=== PATIENT | female | born 1955 | race Caucasian/White ===

== ENCOUNTER 2023-05-19 09:26 | Inpatient (IN) | payer MEDICARE, SELFPAY ==
[2023-05-19] VITALS (11 sets, daily range): BP systolic 133–155; BP diastolic 75–93; PULSE 78–85; RESP 17–24; TEMP 36.2–37.5; O2SAT 89–100
--- NOTE | ~2023-05-19 | CT_ITS ---
EXAMINATION: CTA chest PE protocol DATE: 05/19/2023 11:43 INDICATION: Shortness of breath. Elevated d-dimer. TECHNIQUE: Computed tomography angiography (CTA) of the chest was performed with 100 mL Omnipaque-350 intravenous contrast timed to evaluate the pulmonary arteries. Coronal maximum intensity projection 3D-reconstructions were created by the technologist. Automated exposure control and iterative reconst ruction technique were employed. Exam dose: 136.18 mGy-cm total exam DLP. COMPARISON: 05/19/2023 2 view chest FINDINGS: There is diagnostic contrast enhancement of the pulmonary arteries and no evidence of main, lobar or segmental pulmonary embolism. The peripheral pulmonary arteries are not optimally visualize d due to motion. No thoracic aortic aneurysm or dissection. Normal heart size. No pericardial effusion. Small right pleural effusion. Right apical pulmonary scarring. Patchy bilateral pulmonary infiltrates, involving right upper and middle lobes, lingula and left lowe r lobe and to a greater extent right lower lobe consistent with bilateral pneumonia. Moderately prominent emphysematous changes. Mild hilar and mediastinal lymph node prominence is likely reactive. No suspicious osteolytic or osteoblastic lesions. IMPRESSION: No evidence of pulmonary embolism Scattered patchy bilateral pulmonary infiltrates, likely due to pneumonia COPD Reviewed, dictated and finalized at [facility] Reviewed, dictated and finalized at [facility]. DICHLOROBENZENE MACHINE OPERATOR
--- NOTE | ~2023-05-19 | XR_ITS ---
XR chest 2V DATE: 05/19/2023 10:10 INDICATION: Shortness of breath, congestion TECHNIQUE: AP and lateral views COMPARISON: None FINDINGS: There are bilateral patchy infiltrates in the mid and particularly lower lung zones, right greater than left, suggesting bilateral pneumonia. Aspiration and pulmonary edema are not excluded. Moderate bilateral hyperinflation with relatively sparse markings in the upper lung zones, suggesting bullous emphysema. Cardiomegaly. No hilar or mediastinal enlargement is evident. Minimal if any pleural effusion. No pneumothorax. Osteopenia. IMPRESSION: Bilateral pulmonary infiltrates, particularly in the lower lung zones, right greater than left; diffusion diagnosis includes pneumonia, aspiration and pulmonary edema Bullous emphysema Reviewed, dictated and finalized at [facility]. INSTALLATION AND SERVICER IMPRESSION: Bilateral pulmonary infiltrates, particularly in the lower lung zon es, right greater than left; diffusion diagnosis includes pneumonia, aspiration and pulmonary edema Bullous emphysema
--- NOTE | ~2023-05-19 | US_ITS ---
US abdomen limited DATE: 05/20/2023 08:24 INDICATION: Right upper quadrant abdominal pain. Elevated liver function tests. TECHNIQUE: Real-time imaging of liver, pancreas, gallbladder COMPARISON: None FINDINGS: Incidentally noted is right pleural effusion. There is a mobile shadowing approximately 3.3 x 6.6 mm filling defect of the gallbladder consistent w ith gallstone. No gallbladder wall thickening or pericholecystic fluid collection. Negative sonograph ic Bryson's sign. No hepatic or pancreatic space-occupying mass lesion. Normal hepatopedal portal venous flow direction . The common bile duct measures 2 mm, normal. IMPRESSION: Cholelithiasis Right pleural effusion Reviewed, dictated and finalized at [facility] Reviewed, dictated and finalized at [facility]. HING FOREMAN
--- NOTE | 2023-05-19 09:46 | ECG_ITS ---
Measurements Intervals [place] Rate: 76 P: 81 [place]: 144 QRS: 35 QRSD: 94 T: 59 QT: 376 QTc: 425 Interpretive Statements SINUS RHYTHM DELAYED PRECORDIAL R/S TRANSITION BASELINE ARTIFACT- I, II, III, AVR, AVL, AVF, V1-V6 BORDERLINE ECG NO PREVIOUS ECG AVAILABLE FOR COMPARISON Electronically Signed On 05-19-2023 16:04:54 CHARGE ACCOUNT CLERK by Shawn Brady D.O.
[2023-05-19 10:08] LABS: Basophils Absolute Auto 0.1 K/mm3 (0.0-0.1); Basophils Percent Auto 0.6 % (0.2-1.2); Hemoglobin 14.2 g/dL (12.0-15.0); Immature Granulocyte Absolute 0.54 K/mm3 (0.00-0.031); Immature Granulocyte Percent A 2.5 % (0-0.5); Lymphocytes Absolute Auto 1.22 K/mm3 (0.9-3.2); Lymphocytes Percent Auto 5.7 % (18.3-44.2); Mean Corpuscular Hemoglobin 30.3 pg (26-34); Mean Corpuscular Volume 91.9 fl (80-100); Mean Platelet Volume 10.5 fl (7.4-10.4); Monocytes Absolute Auto 1.5 K/mm3 (0.1-0.6); Neutrophils Percent Auto 84.2 % (45.5-73.1); Platelet Count Result 417 k/mm3 (150-375); Red Blood Count 4.68 M/mm3 (4.2-5.4); Red Cell Distribution Width 14.6 % (11.5-14.5); White Blood Count 21.4 K/mm3 (4.5-10.0)
[2023-05-19 10:19] LABS: Alanine Aminotransferase 65 U/L (6-35); Albumin Level 3.3 g/dL (3.5-5.1); Alkaline Phosphatase 116 U/L (38-126); Anion Gap 8 mmol/L (8-16); Aspartate Amino Transferase 43 U/L (14-36); Bilirubin,Total 0.8 mg/dL (0.2-1.3); Blood Urea Nitrogen 13 mg/dL (7-17); Calcium 8.7 mg/dL (8.4-10.2); Carbon Dioxide 26 mmol/L (22-30); Chloride 103 mmol/L (98-107); Estimated CRCL calculation 55 ml/min; Estimated Glomerular Filt Rate > 60; Glucose 154 mg/dL (65-110); Potassium 3.3 mmol/L (3.4-5.0); Sodium 137 mmol/L (137-145)
[2023-05-19 10:25] LABS: INR 1.1; Partial Thromboplastin Time 25.3 SECONDS (22.3-36.8); Prothrombin Time 14.7 Seconds (11.1-14.7)
[2023-05-19 10:26] LABS: D Dimer 1.76 ug/mL (<0.48)
[2023-05-19 10:30] LABS: NT Pro B Type Natriuretic Pept 516 pg/mL (19.9-100); Platelet Estimate Increased (Adequate); Schistocytes None Seen (NORMAL); Troponin I < 0.012 ng/mL (0.000-0.034)
--- NOTE | 2023-05-19 10:32 | ED.URI ---
HPI - URI/Sore Throat General Chief Complaint: Upper Respiratory Infection Stated Complaint: congestion for several weeks Time Seen by Provider: 05/19/23 09:45 Source: patient Mode of arrival: ambulatory Limitations: no limitations History of Present Illness HPI Narrative: This is a 67-year-old female that presents to the emergency department for shortness of breath and cough. Ongoing over the last 2 weeks. Associated with sore throat and congestion. Reports she was seen at urgent care earlier in the week and given a steroid taper. She did not have any improvement with this. Reports chest pain with coughing. Denies fevers. Related Data Allergies Allergy/AdvReac Type Severity Reaction Status Date / Time amoxicillin AdvReac Diarrhea Verified 05/19/23 09:45 Review of Systems Review of Systems: CONSTITUTIONAL: Denies fever ENT: Reports rhinorrhea, congestion, sore throat CARDIOVASCULAR: Reports chest pain. Denies edema. RESPIRATORY: Reports cough and dyspnea. All systems reviewed & are unremarkable except as noted in HPI and below PMFSH Past Medical History Medical History (Updated 05/19/23 @ 13:04 by Dulce Maria Craft PA-C) No active medical problems Social History Social History (Updated 05/19/23 @ 10:35 by Dulce Maria Craft PA-C) Smoking status: Current every day smoker Exam Narrative: GENERAL: Well-appearing, thin, and in no acute distress. HEAD: Normocephalic, atraumatic. EYES: EOMI. ENT: Nares clear, no rhinorrhea or epistaxis. Mucous membranes dry. Oropharynx with erythema, without tonsillar hypertrophy, exudate or other lesions. Bilateral TMs pearly connelly non-bulging NECK: Supple. No adenopathy or masses. CHEST: No respiratory distress. Rales in the right lung. No wheezes or rhonchi HEART: Regular rate and rhythm. No murmur heard. Normal peripheral pulses. EXTREMITIES: Normal range of motion. No edema. SKIN: Warm, dry, no rash. NEURO: No focal deficits. Alert and oriented x3. PSYCH: Normal mood and affect Course Course Emergency Course: Patient updated on her workup and need for admission Consultations Consultation #1: Spoke with hospitalist about patient and workup who accepts admission Date: 05/19/23 Vital Signs Vital signs: Vital Signs Temperature 98.1 F 05/19/23 09:34 Pulse Rate 80 05/19/23 09:34 Respiratory Rate 18 05/19/23 09:34 Blood Pressure 133/75 05/19/23 09:34 Pulse Oximetry 97 05/19/23 09:34 Oxygen Delivery Room Air 05/19/23 09:34 Temperature 98.7 F 05/19/23 09:45 Pulse Rate 79 05/19/23 12:36 Respiratory Rate 17 05/19/23 12:36 Blood Pressure 149/92 H 05/19/23 12:36 Pulse Oximetry 98 05/19/23 12:36 Oxygen Delivery Nasal Cannula 05/19/23 10:32 Oxygen Flow Rate 2 05/19/23 10:32 MDM - URI/Sore Throat MDM Narrative Medical decision making narrative: Patient presents to the emergency department for worsening dyspnea associated with cold symptoms. She is afebrile and nontoxic appearing. Oxygen saturation did drop to the low 90s/upper 80s on room air. Placed on 2 L nasal cannula with improvement. CBC with leukocytosis to 21.4. Metabolic panel with mild hypokalemia. Patient given a dose of potassium. Her magnesium is mildly high. Liver enzymes are also mildly elevated. Patient influenza A positive. Chest x-ray shows bilateral pulmonary infiltrates. D-dimer elevated, CTA of the chest was obtained. No evidence for PE. Does show findings of pneumonia again. EKG without acute ST changes and baseline troponin is negative. Initial lactic acid elevated at 2.1. Patient hydrated with IV fluids. Blood cultures drawn. Patient started on IV antibiotics. Given a dose of Tamiflu. Patient updated on her workup and need for admission. Spoke with hospitalist about patient and workup who accepts admission Differential Diagnosis Differential diagnosis: Likely upper respiratory infection, viral infection, influenza and other (pneumonia
[2023-05-19 10:37] LABS: Magnesium 2.4 mg/dL (1.6-2.3)
[2023-05-19 10:44] LABS: Influenza A QL RT-PCR Positive (Negative); Influenza B QL RT-PCR Negative (Negative); RSV RNA, RT-PCR Negative (Negative); SARS-CoV-2 RNA PCR Negative (Negative)
[2023-05-19] MEDS: IPRATROPIUM BR 0.02% INH SOLN 0.5 MG/2.5 ML VIAL INHALATION (10:50)
[2023-05-19] MEDS: ALBUTEROL SULFATE NEB 2.5 MG/3 ML INH INHALATION (10:50)
[2023-05-19] MEDS: POTASSIUM CHLORIDE 20 MEQ ER TABLET 40 MEQ PO (10:55)
[2023-05-19] MEDS: OSELTAMIVIR PHOSPHATE 75 MG CAPSULE PO (11:00)
[2023-05-19 11:15] LABS: Lactic Acid Reflex 2.1 mmol/L (0.7-2.0)
[2023-05-19] MEDS: AZITHROMYCIN 500 MG/NS 250 ML 500 MG/250 ML BAG 250 MG IVPB (11:31)
[2023-05-19] MEDS: SODIUM CHLORIDE 0.9% IV 500 ML 999 ML IV CONT ×2 (12:36→13:07)
[2023-05-19 13:06] LABS: Lipase 89 U/L (23-300)
[2023-05-19 14:02] LABS: Reflex Lactic Acid Yes or No Add Lactic
--- NOTE | 2023-05-19 14:11 | ADMGEN ---
This patient, Oneyda Guerrero, was admitted to Medical Room 261-01. Patient/family oriented to hospital policies and general routines including ID bracelet, bed and alarms, visiting hours, pain management, procedures, bathroom and other care routines, personal items, smoking policy, room service/diet, and visiting hours. Information on how to activate the Rapid Response Team has been discussed. Patient/Family are encouraged to report perceived risks to care and to ask questions if they do not understand what they are told or what they should do.
[2023-05-19 14:16] LABS: Appearance Urine Clear (Clear); Bacteria Urine None Seen /hpf; Bilirubin Urine Negative (Negative); Blood Urine Negative (Negative); Color Urine Yellow (Yellow); Glucose Urine UA Trace mg/dL (Negative); Ketones Urine Trace mg/dL (Negative); Leukocyte Esterase Ur Negative LEU/UL (Negative); Nitrate Urine Negative (Negative); Non Pathogenic Casts 0-2; Protein Urine Trace mg/dL (Negative); RBC Urine 0-2 /hpf (0-2); Squamous Epithelial Cell Urine None seen /hpf (Few); Urobilinogen Urine 0.2 mg/dL (<2.0); WBC Urine 0-5 /hpf
[2023-05-19 14:23] LABS: Add Urine Microscopic? YES; Specific Grav Ur 1.062 (1.001-1.035)
--- NOTE | 2023-05-19 21:50 | PM.IMHP ---
H&P: HPI History of Present Illness Date/Time: 05/19/23 21:50 Chief Complaint: SOB Narrative: 67-year-old female presents here with shortness of breath with past medical history of tobacco use. Patient reports that she has been having shortness of breath, dry cough, sore throat, and congestion since late April, approximately 2 weeks ago. Seen at urgent care earlier this week and given steroid taper. However patient has not improved and continues to have shortness of breath with some associated right rib pain/RUQ pain with coughing. Denies any current nausea, vomiting, diarrhea. No history of COPD. Denies any baseline shortness of breath or limitations to daily activities related to shortness of breath. Reports decreased appetite in the last week. Does drink 1-2 glasses of wine with ice in each glass each evening. ED workup revealed an elevated white count at 21.4, elevated D-dimer, hypokalemia, lactic acid of 2.1, magnesium of 2.4, mildly elevated LFTs, normal BNP for age, mildly low albumin level. Urine not consistent with a UTI. Patient was Flu A+. Family at bedside reported their family members had been sick around [place] with fluids well. CXR showed bilateral pulmonary infiltrates in the lower lung barrera with right greater than left and bullous emphysema. CTA done and showed no evidence of PE, scattered pulmonary infiltrates likely due to pneumonia, and COPD. Review of Systems Review of Systems: All systems reviewed & are unremarkable except as noted in HPI and below PMFSH Past Medical History Medical History Tobacco use Surgical History Surgical History No history of previous surgery Social History Social History Smoking status: Current every day smoker Tobacco type: cigarettes Alcohol intake: former Drinks per week: 7 Substance use: never Do You Feel Safe in your Home?: Yes Lack of Transportation: No Lack of Food: Never True Current Housing: I Have Housing Concerned About Future Housing: No Difficulty Paying Gas/Electric Bills: No Difficulty Paying for Meds: No Currently Unemployed: No Education: High School Diploma/GED Difficulty w/ Childcare or Family Care: No Spiritual care concerns: No Meds Home Medications and Allergies Home Medications Medication Instructions Recorded Confirmed Type No Home Medications 05/19/23 05/19/23 History Allergies Allergy/AdvReac Type Severity Reaction Status Date / Time amoxicillin AdvReac Diarrhea Verified 05/19/23 09:45 Vital Signs Vital Signs - 24 hr 05/19/23 09:34 05/19/23 09:43 05/19/23 09:45 Temperature 98.1 F 98.7 F Pulse Rate 80 85 Respiratory Rate 18 22 H Blood Pressure 133/75 155/83 H Pulse Oximetry 97 97 99 Oxygen Delivery Room Air Room Air Oxygen Flow Rate 05/19/23 10:32 05/19/23 10:32 05/19/23 10:50 Temperature Pulse Rate 78 Respiratory Rate 18 Blood Pressure Pulse Oximetry 89 L 100 Oxygen Delivery Room Air Nasal Cannula Oxygen Flow Rate 2 05/19/23 11:02 05/19/23 12:36 05/19/23 14:37 Temperature Pulse Rate 82 79 Respiratory Rate 20 17 Blood Pressure 149/92 H Pulse Oximetry 98 98 Oxygen Delivery Nasal Cannula Oxygen Flow Rate 2 05/19/23 16:12 05/19/23 20:48 05/19/23 20:00 Temperature 99.5 F 97.2 F L Pulse Rate 81 78 Respiratory Rate 24 H 18 Blood Pressure 138/93 H 144/86 H Pulse Oximetry 96 94 94 Oxygen Delivery Nasal Cannula Oxygen Flow Rate 2 Exam Const: General: comfortable and no acute distress Other: Mild ill appearance. HENMT: Face/Nose/Sinus: Normal nares present Mouth: Yes dry mucous membranes Other: Outer tongue moist otherwise dry. Eyes: General: appearance normal, both eyes and all related structures Sclera: sclerae normal Pupils: Equal, round and reactive pupils present
[2023-05-19] MEDS: guaiFENesin 12 HR 600 MG TABCR PO (22:59)
[2023-05-19] MEDS: LACTATED RINGERS 1,000 ML 100 ML IV CONT (23:01)
[2023-05-19] MEDS: BENZOCAINE/MENTHOL (*BKC) 18 EA LOZENGE 1 LOZENGE PO (23:02)
[2023-05-20] VITALS (19 sets, daily range): BP systolic 115–145; BP diastolic 62–89; PULSE 69–87; RESP 18–24; TEMP 36.1–36.6; O2SAT 89–96
[2023-05-20] MEDS: IPRATROPIUM BR 0.02% INH SOLN 0.5 MG/2.5 ML VIAL INHALATION ×6 (00:41→21:49)
[2023-05-20] MEDS: ALBUTEROL SULFATE NEB 2.5 MG/3 ML INH INHALATION ×6 (00:42→21:49)
[2023-05-20 06:17] LABS: Basophils Absolute Auto 0.1 K/mm3 (0.0-0.1); Basophils Percent Auto 0.4 % (0.2-1.2); Eosinophils Percent Auto 0.1 % (0-4.4); Hemoglobin 11.8 g/dL (12.0-15.0); Immature Granulocyte Percent A 1.6 % (0-0.5); Lymphocytes Absolute Auto 1.44 K/mm3 (0.9-3.2); Lymphocytes Percent Auto 7.7 % (18.3-44.2); Mean Corpuscular HGB Conc 32.8 g/dl (32-36); Mean Corpuscular Hemoglobin 30.4 pg (26-34); Mean Corpuscular Volume 92.8 fl (80-100); Mean Platelet Volume 10.6 fl (7.4-10.4); Monocytes Absolute Auto 1.4 K/mm3 (0.1-0.6); Monocytes Percent Auto 7.5 % (2.6-8.5); Neutrophils Absolute Auto 15.4 K/mm3 (1.3-6.7); Neutrophils Percent Auto 82.7 % (45.5-73.1); Platelet Count Result 390 k/mm3 (150-375); Red Blood Count 3.88 M/mm3 (4.2-5.4); Red Cell Distribution Width 14.6 % (11.5-14.5); White Blood Count 18.7 K/mm3 (4.5-10.0)
[2023-05-20 06:32] LABS: Alanine Aminotransferase 51 U/L (6-35); Albumin Level 2.6 g/dL (3.5-5.1); Alkaline Phosphatase 105 U/L (38-126); Anion Gap 6 mmol/L (8-16); Aspartate Amino Transferase 36 U/L (14-36); Bilirubin,Total 0.6 mg/dL (0.2-1.3); Blood Urea Nitrogen 8 mg/dL (7-17); Calcium 8.2 mg/dL (8.4-10.2); Carbon Dioxide 24 mmol/L (22-30); Chloride 104 mmol/L (98-107); Estimated CRCL calculation 66 ml/min; Estimated Glomerular Filt Rate > 60; Glucose 88 mg/dL (65-110); Potassium 3.5 mmol/L (3.4-5.0); Sodium 134 mmol/L (137-145)
[2023-05-20] MEDS: BENZONATATE 100 MG CAPSULE PO ×3 (09:50→16:11)
[2023-05-20] MEDS: ENOXAPARIN 40 MG/0.4 ML SYRINGE SUB-Q (09:51)
[2023-05-20] MEDS: guaiFENesin 12 HR 600 MG TABCR PO ×2 (09:51→20:38)
[2023-05-20] MEDS: POTASSIUM CHLORIDE 10 MEQ ER TABLET PO ×2 (09:51→16:12)
[2023-05-20] MEDS: predniSONE 20 MG TABLET 40 MG PO (09:51)
[2023-05-20] MEDS: AZITHROMYCIN 500 MG/NS 250 ML 500 MG/250 ML BAG 250 MG IVPB (11:45)
--- NOTE | 2023-05-20 12:09 | PM.IMPN ---
Progress Note: A&P Assessment and Plan (1) Influenza A: Code(s): J10.1 - Influenza due to other identified influenza virus with other respiratory manifestations Status: Acute (2) Pneumonia: Qualifiers: Laterality: bilateral Lung location: unspecified part of lung Pneumonia type: due to unspecified organism Qualified Code(s): J18.9 - Pneumonia, unspecified organism Code(s): J18.9 - Pneumonia, unspecified organism Status: Acute (3) Acute hypoxic respiratory failure: Code(s): J96.01 - Acute respiratory failure with hypoxia Status: Acute (4) Acute hypokalemia: Code(s): E87.6 - Hypokalemia Status: Acute (5) Transaminitis: Code(s): R74.01 - Elevation of levels of liver transaminase levels Status: Acute Plan 67-year-old female with past medical history of tobacco abuse presented with worsening shortness of breast.?Patient was Flu A+.? Family at bedside reported their family members had been sick around [place] with fluids well.? CXR showed bilateral pulmonary infiltrates in the lower lung barrera with right greater than left and bullous emphysema.? CTA done and showed no evidence of PE, scattered pulmonary infiltrates likely due to pneumonia, and COPD. 1. Acute hypoxic respiratory failure Symptom onset greater than 2 weeks ago Not a candidate for Tamiflu Possible superimposed bacterial pneumonia Continue with O2 support Continue with azithromycin and ceftriaxone Continue with albuterol, Atrovent Continue with cough suppressants Continue with short course of p.o. prednisone Monitor leukocytosis Follow-up blood culture 2. DVT prophylaxis: Lovenox 3. Code status: Full 4. Disposition: Pending improvement Time Spent With Patient Time with patient: 15 - 25 minutes Subjective Date/time seen: 05/20/23 12:09 Interval history: Feeling better, no acute events overnight Review of Systems Review of Systems: All systems reviewed & are unremarkable except as noted in HPI and below Exam Const: General: comfortable and no acute distress Other: Mild ill appearance. HENMT: Mouth: Yes dry mucous membranes Other: Outer tongue moist otherwise dry. Eyes: Sclera: sclerae normal Resp: Other: Nasal cannula, decreased breath sounds bilaterally, no crackles heard Cardio: Rhythm: regular rhythm Other: S1-S2 present without murmur, rub, ectopy GI: Other: Nondistended, soft, Normal bowel sounds in all quadrants. Skin: General skin exam: normal color and no rashes or lesions noted Wounds: no wounds Neuro: Speech: normal speech Other: A/0x4 Extrem: General: normal to inspection Psych: Mental Status: mental status grossly normal Affect: normal affect Other: Good insight and judgment, in good spirits. Objective Data Vital Signs Vital Signs: Vital Signs - 24 hr 05/19/23 12:36 05/19/23 14:37 05/19/23 16:12 Temperature 99.5 F Pulse Rate 79 81 Respiratory Rate 17 24 H Blood Pressure 149/92 H 138/93 H Pulse Oximetry 98 98 96 Oxygen Delivery Nasal Cannula Oxygen Flow Rate 2 Fraction of Inspired Oxygen 05/19/23 20:48 05/19/23 20:00 05/20/23 00:54 Temperature 97.2 F L Pulse Rate 78 Respiratory Rate 18 Blood Pressure 144/86 H Pulse Oximetry 94 94 89 L Oxygen Delivery Nasal Cannula Nasal Cannula Oxygen Flow Rate 2 2 Fraction of Inspired Oxygen 28 05/20/23 00:45 05/20/23 00:56 05/20/23 03:40 Temperature 97.5 F L Pulse Rate 78 80 86 Respiratory Rate 20 18 18 Blood Pressure 145/89 H Pulse Oximetry 94 Oxygen Delivery Oxygen Flow Rate Fraction of Inspired Oxygen 05/20/23 05:24 05/20/23 05:26 05/20/23 07:00 Temperature Pulse Rate 82 87 Respiratory Rate 18 18 Blood Pressure Pulse Oximetry 95 92 Oxygen Delivery Nasal Cannula Nasal Cannula Oxygen Flow Rate 3 3 Fraction of Inspired Oxygen 32 05/20/23 07:00 05/20/23 07:10 01
[2023-05-21] VITALS (16 sets, daily range): BP systolic 116–144; BP diastolic 73–88; PULSE 78–95; RESP 16–20; TEMP 36.2–36.3; O2SAT 91–94
[2023-05-21] MEDS: IPRATROPIUM BR 0.02% INH SOLN 0.5 MG/2.5 ML VIAL INHALATION ×5 (04:18→20:34)
[2023-05-21] MEDS: ALBUTEROL SULFATE NEB 2.5 MG/3 ML INH INHALATION ×5 (04:19→20:34)
[2023-05-21 06:05] LABS: Basophils Percent Auto 0.2 % (0.2-1.2); Eosinophils Percent Auto 0.2 % (0-4.4); Hematocrit 32.4 % (37.0-47.0); Immature Granulocyte Absolute 0.19 K/mm3 (0.00-0.031); Immature Granulocyte Percent A 1.3 % (0-0.5); Lymphocytes Absolute Auto 1.67 K/mm3 (0.9-3.2); Lymphocytes Percent Auto 11.1 % (18.3-44.2); Mean Corpuscular Hemoglobin 30.7 pg (26-34); Mean Corpuscular Volume 90.5 fl (80-100); Mean Platelet Volume 10.3 fl (7.4-10.4); Monocytes Absolute Auto 1.3 K/mm3 (0.1-0.6); Monocytes Percent Auto 8.7 % (2.6-8.5); Neutrophils Absolute Auto 11.8 K/mm3 (1.3-6.7); Neutrophils Percent Auto 78.5 % (45.5-73.1); Platelet Count Result 373 k/mm3 (150-375); Red Blood Count 3.58 M/mm3 (4.2-5.4); Red Cell Distribution Width 14.5 % (11.5-14.5)
[2023-05-21 06:21] LABS: Alanine Aminotransferase 53 U/L (6-35); Albumin Level 2.7 g/dL (3.5-5.1); Alkaline Phosphatase 93 U/L (38-126); Anion Gap 7 mmol/L (8-16); Aspartate Amino Transferase 45 U/L (14-36); Bilirubin,Total 0.4 mg/dL (0.2-1.3); Blood Urea Nitrogen 9 mg/dL (7-17); Calcium 8.3 mg/dL (8.4-10.2); Carbon Dioxide 22 mmol/L (22-30); Chloride 105 mmol/L (98-107); Estimated CRCL calculation 66 ml/min; Estimated Glomerular Filt Rate > 60; Glucose 106 mg/dL (65-110); Potassium 3.4 mmol/L (3.4-5.0); Sodium 134 mmol/L (137-145)
[2023-05-21] MEDS: predniSONE 20 MG TABLET 40 MG PO (08:26)
[2023-05-21] MEDS: guaiFENesin 12 HR 600 MG TABCR PO ×2 (08:27→19:55)
[2023-05-21] MEDS: BENZONATATE 100 MG CAPSULE PO ×3 (08:27→17:14)
[2023-05-21] MEDS: POTASSIUM CHLORIDE 10 MEQ ER TABLET PO ×2 (08:27→17:14)
[2023-05-21] MEDS: ENOXAPARIN 40 MG/0.4 ML SYRINGE SUB-Q (08:28)
[2023-05-21] MEDS: AZITHROMYCIN 500 MG/NS 250 ML 500 MG/250 ML BAG 250 MG IVPB (12:13)
--- NOTE | 2023-05-21 12:40 | PM.IMPN ---
Progress Note: A&P Assessment and Plan (1) Influenza A: Code(s): J10.1 - Influenza due to other identified influenza virus with other respiratory manifestations Status: Acute Assessment and Plan: Tested positive For flu A Outside the window for Tamiflu Trend respiratory status Supplemental oxygen provided (2) Pneumonia: Qualifiers: Laterality: bilateral Lung location: unspecified part of lung Pneumonia type: due to unspecified organism Qualified Code(s): J18.9 - Pneumonia, unspecified organism Code(s): J18.9 - Pneumonia, unspecified organism Status: Acute Assessment and Plan: Chest x-ray showed bilateral pulmonary infiltrates in lower [place]. CTA showed pulmonary infiltrates likely due to pneumonia Supplemental oxygen wean to maintain saturations greater than 90% Sputum culture ordered Blood cultures pending Continue ceftriaxone azithromycin (3) Acute hypoxic respiratory failure: Code(s): J96.01 - Acute respiratory failure with hypoxia Status: Acute Assessment and Plan: Symptom onset greater than 2 weeks ago Not a candidate for Tamiflu Possible superimposed bacterial pneumonia Supplemental oxygen wean to maintain saturations greater than 90% Continue with supportive treatment with cough suppressant, IV drug, Atrovent, antibiotics and prednisone Currently on 2 L nasal cannula Related to the flu. (4) Acute hypokalemia: Code(s): E87.6 - Hypokalemia Status: Acute Assessment and Plan: Current potassium 3.4 Potassium on arrival was 3.3 Continue trend potassium of Supplement as indicated (5) Transaminitis: Code(s): R74.01 - Elevation of levels of liver transaminase levels Status: Acute Assessment and Plan: Liver enzymes slightly elevated Consider hep panel in the a.m. if continues to rise Continue trend labs Time Spent With Patient Time: 42 minutes Time with patient: Greater than 35 minutes Subjective Date/time seen: 05/21/23 1240 Interval history: Patient is 67-year-old female with a past medical history of tobacco abuse who presented with worsening shortness of breath currently patient is feeling a little better. She still having shortness of breath with accessory muscle use. She is still on supplemental oxygen. She did state that she had a dry cough and she just feels very congested. She denies any diarrhea, constipation, nausea, vomiting, sweats, fevers, chills or chest pain. Review of Systems Review of Systems: All systems reviewed & are unremarkable except as noted in HPI and below Exam Narrative: General: well-nourished, ill and tired-appearing 67-year-old female, laying in bed, comfortable, NARD Neuro: awake, alert and oriented x4, speech clear, no focal neuro deficits noted HEENMT: normocephalic, atraumatic, EOMI, sclerae anicteric, moist oral mucosa Respiratory: Clear to auscultation bilaterally without crackles, rhonchi or wheezes, nonlabored breathing Cardio: regular rate, regular rhythm with S1-S2 Abdomen: nondistended, normoactive bowel sounds, soft, nontender to palpation Extremities: no edema, erythema, or tenderness to palpation, DP pulses 2+ bilaterally Skin: no rashes or lesions, warm and dry Psych: appropriate mood and affect, judgment and insight intact Objective Data Vital Signs Vital Signs: Vital Signs - 24 hr 05/20/23 15:45 05/20/23 15:59 05/20/23 21:19 Temperature 96.9 F L Pulse Rate 80 84 87 Respiratory Rate 20 18 18 Blood Pressure 123/81 Pulse Oximetry 92 Oxygen Delivery Oxygen Flow Rate 05/20/23 20:45 05/20/23 21:49 05/20/23 21:53 Temperature Pulse Rate 74 74 Respiratory Rate 20 Blood Pressure Pulse Oximetry 95 96 Oxygen Delivery Nasal Cannula Nasal Cannula Oxygen Flow Rate 2 2 05/20/23 22:02 05/21/23 04:19 05/21/23 04:28 Temperature
--- NOTE | 2023-05-21 12:40 | P.PNIM_ITS ---
Progress Note: A&P Assessment and Plan (1) Influenza A: Code(s): J10.1 - Influenza due to other identified influenza virus with other respiratory manifestations Status: Acute Assessment and Plan: * Tested positive For flu A * Outside the window for Tamiflu * Trend respiratory status * Supplemental oxygen provided (2) Pneumonia: Qualifiers: Laterality: bilateral Lung location: unspecified part of lung Pneumonia type: due to unspecified organism Qualified Code(s): J18.9 - Pneumonia, unspecified organism Code(s): J18.9 - Pneumonia, unspecified organism Status: Acute Assessment and Plan: * Chest x-ray showed bilateral pulmonary infiltrates in lower [place]. * CTA showed pulmonary infiltrates likely due to pneumonia * Supplemental oxygen wean to maintain saturations greater than 90% * Sputum culture ordered * Blood cultures pending * Continue ceftriaxone azithromycin (3) Acute hypoxic respiratory failure: Code(s): J96.01 - Acute respiratory failure with hypoxia Status: Acute Assessment and Plan: * Symptom onset greater than 2 weeks ago * Not a candidate for Tamiflu * Possible superimposed bacterial pneumonia * Supplemental oxygen wean to maintain saturations greater than 90% * Continue with supportive treatment with cough suppressant, IV drug, Atrovent, antibiotics and prednisone * Currently on 2 L nasal cannula * Related to the flu. (4) Acute hypokalemia: Code(s): E87.6 - Hypokalemia Status: Acute Assessment and Plan: * Current potassium 3.4 * Potassium on arrival was 3.3 * Continue trend potassium of * Supplement as indicated (5) Transaminitis: Code(s): R74.01 - Elevation of levels of liver transaminase levels Status: Acute Assessment and Plan: * Liver enzymes slightly elevated * Consider hep panel in the a.m. if continues to rise * Continue trend labs Time Spent With Patient Time: 42 minutes Time with patient: Greater than 35 minutes Subjective Date/time seen: 05/21/23 1240 Interval history: Patient is 67-year-old female with a past medical history of tobacco abuse who presented with worsening shortness of breath currently patient is feeling a little better. She still having shortness of breath with accessory muscle use. She is still on supplemental oxygen. She did state that she had a dry cough and she just feels very congested. She denies any diarrhea, constipation, nausea, vomiting, sweats, fevers, chills or chest pain. Review of Systems Review of Systems: All systems reviewed & are unremarkable except as noted in HPI and below Exam Narrative: General: well-nourished, ill and tired-appearing 67-year-old female, laying in bed, comfortable, NARD Neuro: awake, alert and oriented x4, speech clear, no focal neuro deficits noted HEENMT: normocephalic, atraumatic, EOMI, sclerae anicteric, moist oral mucosa Respiratory: Clear to auscultation bilaterally without crackles, rhonchi or wheezes, nonlabored breathing Cardio: regular rate, regular rhythm with S1-S2 Abdomen: nondistended, normoactive bowel sounds, soft, nontender to palpation Extremities: no edema, erythema, or tenderness to palpation, DP pulses 2+ bilaterally Skin: no rashes or lesions, warm and dry Psych: appropriate mood and affect, judgment and insight intact
[2023-05-21] MEDS: LORATADINE/PSEUDOEPHEDRINE (*CRX) 10/240 MG TABLET ER 24 HR 1 TAB PO (17:14)
[2023-05-22] VITALS (14 sets, daily range): BP systolic 105–137; BP diastolic 66–86; PULSE 78–108; RESP 16–20; TEMP 36.3–36.7; O2SAT 92–96
[2023-05-22] MEDS: IPRATROPIUM BR 0.02% INH SOLN 0.5 MG/2.5 ML VIAL INHALATION ×5 (00:24→20:15)
[2023-05-22] MEDS: ALBUTEROL SULFATE NEB 2.5 MG/3 ML INH INHALATION ×5 (00:24→20:14)
[2023-05-22] MEDS: POTASSIUM CHLORIDE 10 MEQ ER TABLET PO ×2 (08:14→17:22)
[2023-05-22] MEDS: LORATADINE/PSEUDOEPHEDRINE (*CRX) 10/240 MG TABLET ER 24 HR 1 TAB PO (08:14)
[2023-05-22] MEDS: BENZONATATE 100 MG CAPSULE PO ×3 (08:15→17:23)
[2023-05-22] MEDS: predniSONE 20 MG TABLET 40 MG PO (08:15)
[2023-05-22] MEDS: guaiFENesin 12 HR 600 MG TABCR PO ×2 (08:17→22:00)
[2023-05-22] MEDS: ENOXAPARIN 40 MG/0.4 ML SYRINGE SUB-Q (08:18)
--- NOTE | 2023-05-22 11:35 | P.PNIM_ITS ---
Progress Note: A&P Assessment and Plan (1) Influenza A: Code(s): J10.1 - Influenza due to other identified influenza virus with other respiratory manifestations Status: Acute Assessment and Plan: * Tested positive For flu A * Outside the window for Tamiflu * Trend respiratory status * Supplemental oxygen provided (2) Pneumonia: Qualifiers: Laterality: bilateral Lung location: unspecified part of lung Pneumonia type: due to unspecified organism Qualified Code(s): J18.9 - Pneumonia, unspecified organism Code(s): J18.9 - Pneumonia, unspecified organism Status: Acute Assessment and Plan: * Chest x-ray showed bilateral pulmonary infiltrates in lower [place]. * CTA showed pulmonary infiltrates likely due to pneumonia * Supplemental oxygen wean to maintain saturations greater than 90% * Sputum culture ordered * Blood cultures negative for growth * Continue ceftriaxone azithromycin * Continue Tessalon Perles, Mucinex, (3) Acute hypoxic respiratory failure: Code(s): J96.01 - Acute respiratory failure with hypoxia Status: Acute Assessment and Plan: * Possible superimposed bacterial pneumonia * Supplemental oxygen wean to maintain saturations greater than 90% * Continue with supportive treatment with cough suppressant, IV drug, Atrovent, antibiotics and prednisone * Currently on 2 L nasal cannula (4) Acute hypokalemia: Code(s): E87.6 - Hypokalemia Status: Acute Assessment and Plan: * Current potassium 3.4 * Potassium on arrival was 3.3 * Continue trend potassium of * Supplement as indicated (5) Transaminitis: Code(s): R74.01 - Elevation of levels of liver transaminase levels Status: Acute Assessment and Plan: * Liver enzymes slightly elevated * Continue trend labs Time Spent With Patient Time with patient: 25 - 35 minutes Subjective Date/time seen: 05/22/23 11:35 Interval history: Patient still complains of some cough. He was admitted yesterday with worsening shortness of breath requiring oxygen Review of Systems Review of Systems: All systems reviewed & are unremarkable except as noted in HPI and below Exam Narrative: GENERAL: Well appearing, no acute distress. HEAD: Normocephalic, atraumatic. NECK: Supple. No adenopathy, no masses. RESPIRATORY: Airway patent, respirations nonlabored. Clear to auscultation bilaterally, no rales, rhonchi, wheezing. CARDIOVASCULAR: Regular rate and rhythm without murmurs, rubs, or gallops. Peripheral pulses 2+ and equal bilaterally. ABDOMINAL: Soft, nontender, nondistended, no hepatosplenomegaly. Normoactive BS. MUSCULOSKELETAL: no Epigastric and no hypochondrial tenderness SKIN: Warm, dry, normal color. No rashes. NEURO: A&O X3. Moves all extremities PSYCHIATRIC: Appropriate mood and affect. Normal interaction. Objective Data Vital Signs Vital Signs: Vital Signs - 24 hr 05/21/23 12:40 05/21/23 12:56 05/21/23 15:52 Temperature 36.2 C L Pulse Rate 80 84 89 Respiratory Rate 18 18 16 Blood Pressure 116/76 Pulse Oximetry 92 Oxygen Delivery Oxygen Flow Rate Fraction of Inspired Oxygen 0
--- NOTE | 2023-05-22 11:35 | PM.IMPN ---
Progress Note: A&P Assessment and Plan (1) Influenza A: Code(s): J10.1 - Influenza due to other identified influenza virus with other respiratory manifestations Status: Acute Assessment and Plan: Tested positive For flu A Outside the window for Tamiflu Trend respiratory status Supplemental oxygen provided (2) Pneumonia: Qualifiers: Laterality: bilateral Lung location: unspecified part of lung Pneumonia type: due to unspecified organism Qualified Code(s): J18.9 - Pneumonia, unspecified organism Code(s): J18.9 - Pneumonia, unspecified organism Status: Acute Assessment and Plan: Chest x-ray showed bilateral pulmonary infiltrates in [place]. CTA showed pulmonary infiltrates likely due to pneumonia Supplemental oxygen wean to maintain saturations greater than 90% Sputum culture ordered Blood cultures negative for growth Continue ceftriaxone azithromycin Continue Tessalon Perlernst, Mucinex, (3) Acute hypoxic respiratory failure: Code(s): J96.01 - Acute respiratory failure with hypoxia Status: Acute Assessment and Plan: Possible superimposed bacterial pneumonia Supplemental oxygen wean to maintain saturations greater than 90% Continue with supportive treatment with cough suppressant, IV drug, Atrovent, antibiotics and prednisone Currently on 2 L nasal cannula (4) Acute hypokalemia: Code(s): E87.6 - Hypokalemia Status: Acute Assessment and Plan: Current potassium 3.4 Potassium on arrival was 3.3 Continue trend potassium of Supplement as indicated (5) Transaminitis: Code(s): R74.01 - Elevation of levels of liver transaminase levels Status: Acute Assessment and Plan: Liver enzymes slightly elevated Continue trend labs Time Spent With Patient Time with patient: 25 - 35 minutes Subjective Date/time seen: 05/22/23 11:35 Interval history: Patient still complains of some cough. He was admitted yesterday with worsening shortness of breath requiring oxygen Review of Systems Review of Systems: All systems reviewed & are unremarkable except as noted in HPI and below Exam Narrative: GENERAL: Well appearing, no acute distress. HEAD: Normocephalic, atraumatic. NECK: Supple. No adenopathy, no masses. RESPIRATORY: Airway patent, respirations nonlabored. Clear to auscultation bilaterally, no rales, rhonchi, wheezing. CARDIOVASCULAR: Regular rate and rhythm without murmurs, rubs, or gallops. Peripheral pulses 2+ and equal bilaterally. ABDOMINAL: Soft, nontender, nondistended, no hepatosplenomegaly. Normoactive BS. MUSCULOSKELETAL: no Epigastric and no hypochondrial tenderness SKIN: Warm, dry, normal color. No rashes. NEURO: A&O X3. Moves all extremities PSYCHIATRIC: Appropriate mood and affect. Normal interaction. Objective Data Vital Signs Vital Signs: Vital Signs - 24 hr 05/21/23 12:40 05/21/23 12:56 05/21/23 15:52 Temperature 36.2 C L Pulse Rate 80 84 89 Respiratory Rate 18 18 16 Blood Pressure 116/76 Pulse Oximetry 92 Oxygen Delivery Oxygen Flow Rate Fraction of Inspired Oxygen 05/21/23 16:20 05/21/23 16:36 05/21/23 20:00 Temperature Pulse Rate 78 82 82 Respiratory Rate 18 18 18 Blood Pressure Pulse Oximetry 92 Oxygen Delivery Nasal Cannula Oxygen Flow Rate 1 Fraction of Inspired Oxygen 32 05/21/23 20:35 05/21/23 20:35 05/21/23 21:04 Temperature 36.3 C L Pulse Rate 87 87 95 Respiratory Rate 16 16 18 Blood Pressure 144/88 H Pulse Oximetry 94 94 Oxygen Delivery Nasal Cannula Oxygen Flow Rate 1 Fraction of Inspired Oxygen 05/21/23 20:45 05/22/23 00:27 05/22/23 00:35 Temperature Pulse Rate 83 78 85 Respiratory Rate 16 16 16 Blood Pressure Pulse Oximetry Oxygen Delivery Oxygen Flow Rate Fraction of Inspired Oxygen 05/13
[2023-05-22 12:09] LABS: Hematocrit 34.9 % (37.0-47.0); Hemoglobin 11.5 g/dL (12.0-15.0); Mean Corpuscular Hemoglobin 30.3 pg (26-34); Mean Corpuscular Volume 92.1 fl (80-100); Platelet Count Result 396 k/mm3 (150-375); Red Blood Count 3.79 M/mm3 (4.2-5.4); Red Cell Distribution Width 14.6 % (11.5-14.5); White Blood Count 11.5 K/mm3 (4.5-10.0)
[2023-05-22 12:16] LABS: Alanine Aminotransferase 84 U/L (6-35); Albumin Level 2.8 g/dL (3.5-5.1); Alkaline Phosphatase 94 U/L (38-126); Anion Gap 9 mmol/L (8-16); Aspartate Amino Transferase 61 U/L (14-36); Bilirubin,Total 0.5 mg/dL (0.2-1.3); Blood Urea Nitrogen 11 mg/dL (7-17); Calcium 8.2 mg/dL (8.4-10.2); Carbon Dioxide 21 mmol/L (22-30); Chloride 103 mmol/L (98-107); Estimated CRCL calculation 56 ml/min; Estimated Glomerular Filt Rate > 60; Glucose 145 mg/dL (65-110); Sodium 133 mmol/L (137-145)
[2023-05-22] MEDS: AZITHROMYCIN 500 MG/NS 250 ML 500 MG/250 ML BAG 250 MG IVPB (12:35)
[2023-05-23] VITALS (18 sets, daily range): BP systolic 114–119; BP diastolic 67–83; PULSE 73–96; RESP 16–18; TEMP 36.3–36.7; O2SAT 85–98
[2023-05-23] MEDS: IPRATROPIUM BR 0.02% INH SOLN 0.5 MG/2.5 ML VIAL INHALATION ×6 (00:14→20:25)
[2023-05-23] MEDS: ALBUTEROL SULFATE NEB 2.5 MG/3 ML INH INHALATION ×6 (00:14→20:25)
[2023-05-23 08:42] LABS: Hematocrit 33.1 % (37.0-47.0); Hemoglobin 11.2 g/dL (12.0-15.0); Mean Corpuscular HGB Conc 33.8 g/dl (32-36); Mean Corpuscular Hemoglobin 31.2 pg (26-34); Mean Corpuscular Volume 92.2 fl (80-100); Mean Platelet Volume 9.6 fl (7.4-10.4); Platelet Count Result 403 k/mm3 (150-375); Red Blood Count 3.59 M/mm3 (4.2-5.4); Red Cell Distribution Width 14.5 % (11.5-14.5); White Blood Count 8.1 K/mm3 (4.5-10.0)
[2023-05-23 08:54] LABS: Alanine Aminotransferase 87 U/L (6-35); Alkaline Phosphatase 92 U/L (38-126); Anion Gap 7 mmol/L (8-16); Aspartate Amino Transferase 53 U/L (14-36); Bilirubin,Total 0.6 mg/dL (0.2-1.3); Blood Urea Nitrogen 9 mg/dL (7-17); Calcium 8.6 mg/dL (8.4-10.2); Carbon Dioxide 23 mmol/L (22-30); Chloride 104 mmol/L (98-107); Estimated CRCL calculation 56 ml/min; Estimated Glomerular Filt Rate > 60; Glucose 74 mg/dL (65-110); Potassium 3.3 mmol/L (3.4-5.0); Sodium 134 mmol/L (137-145)
[2023-05-23] MEDS: LORATADINE/PSEUDOEPHEDRINE (*CRX) 10/240 MG TABLET ER 24 HR 1 TAB PO (09:45)
[2023-05-23] MEDS: predniSONE 20 MG TABLET 40 MG PO (09:45)
[2023-05-23] MEDS: ENOXAPARIN 40 MG/0.4 ML SYRINGE SUB-Q (09:45)
[2023-05-23] MEDS: guaiFENesin 12 HR 600 MG TABCR PO ×2 (09:45→20:20)
[2023-05-23] MEDS: BENZONATATE 100 MG CAPSULE PO ×3 (09:45→16:40)
[2023-05-23] MEDS: POTASSIUM CHLORIDE 10 MEQ ER TABLET PO ×2 (09:45→16:40)
--- NOTE | 2023-05-23 12:17 | PM.IMPN ---
Progress Note: A&P Assessment and Plan (1) Pneumonia: Qualifiers: Laterality: bilateral Lung location: unspecified part of lung Pneumonia type: due to unspecified organism Qualified Code(s): J18.9 - Pneumonia, unspecified organism Code(s): J18.9 - Pneumonia, unspecified organism Status: Acute (2) Acute hypoxic respiratory failure: Code(s): J96.01 - Acute respiratory failure with hypoxia Status: Acute (3) Acute hypokalemia: Code(s): E87.6 - Hypokalemia Status: Acute (4) Transaminitis: Code(s): R74.01 - Elevation of levels of liver transaminase levels Status: Acute (5) Influenza A: Code(s): J10.1 - Influenza due to other identified influenza virus with other respiratory manifestations Status: Acute Plan Acute respiratory failure with pneumonia/influenza Chest x-ray showed bilateral pulmonary infiltrates in [place]. CTA showed pulmonary infiltrates likely due to pneumonia Supplemental oxygen wean to maintain saturations greater than 90% Sputum culture ordered unable to collect WBC is normal Blood cultures?negative for growth Continue?ceftriaxone azithromycin Continue Tessalon Perles, Mucinex Possible superimposed bacterial pneumonia Supplemental oxygen wean to maintain saturations greater than 90% Continue with supportive treatment with cough suppressant, IV drug, Atrovent, antibiotics and prednisone Currently on 2 L nasal cannula Current potassium 3.3 will replace LFTs are stable DVT prophylaxis. Lovenox GI prophylaxis. Protonix All records reviewed Discussed plan of care with the nursing staff and with the patient in detail. Answered all questions and concerns from the patient. All labs have been reviewed. Code status updated dictation may have been done utilizing a voice recognition system. Attempts have been made to correct errors. However, there may be uncorrected grammatical, spelling, and recognition errors present. Subjective Date/time seen: 05/23/23 12:17 Interval history: Patient more alert and awake complains of cough which is productive sputum is yellow Review of Systems Review of Systems: All systems reviewed & are unremarkable except as noted in HPI and below Exam Narrative: GENERAL: Well appearing, no acute distress. HEAD: Normocephalic, atraumatic. NECK: Supple. No adenopathy, no masses. RESPIRATORY: respirations nonlabored. , no rales, wheezing. CARDIOVASCULAR: Regular rate and rhythm without murmurs, . Peripheral pulses 2+ and equal bilaterally. ABDOMINAL: Soft, nontender, nondistended, no hepatosplenomegaly. Normoactive BS. MUSCULOSKELETAL: no Epigastric and no hypochondrial tenderness SKIN: Warm, dry, NEURO: A&O X3. Moves all extremities Objective Data Vital Signs Vital Signs: Vital Signs - 24 hr 05/22/23 12:21 05/22/23 13:08 05/22/23 20:16 Temperature 36.6 C Pulse Rate 90 108 H 90 Respiratory Rate 18 20 18 Blood Pressure 137/78 Pulse Oximetry 95 Oxygen Delivery 05/22/23 20:23 05/22/23 20:26 05/22/23 21:19 Temperature 36.7 C Pulse Rate 94 84 Respiratory Rate 18 16 Blood Pressure 105/66 Pulse Oximetry 92 93 Oxygen Delivery Room Air 05/23/23 00:15 05/23/23 00:21 05/23/23 04:31 Temperature Pulse Rate 94 91 83 Respiratory Rate 18 18 18 Blood Pressure Pulse Oximetry Oxygen Delivery 05/23/23 04:33 05/23/23 04:41 05/23/23 05:44 Temperature 36.5 C Pulse Rate 82 83 Respiratory Rate 18 18 Blood Pressure 114/67 Pulse Oximetry 85 L 96 Oxygen Delivery Room Air 05/23/23 08:08 05/23/23 08:11 05/23/23 08:30 Temperature Pulse Rate 73 84 Respiratory Rate 16 16 Blood Pressure Pulse Oximetry 94 Oxygen Delivery Room Air 05/23/23 09:45 Temperature Pulse Rate Respiratory Rate Blood Pressure Pulse Oximetry Oxygen Delivery Room Air Intake/Output Intake/Output: Intake & Output
[2023-05-23] MEDS: PANTOPRAZOLE 40 MG TABLET PO (13:02)
[2023-05-23] MEDS: AZITHROMYCIN 500 MG/NS 250 ML 500 MG/250 ML BAG 250 MG IVPB (13:45)
[2023-05-24] VITALS (8 sets, daily range): BP systolic 130; BP diastolic 79; PULSE 71–92; RESP 16–18; TEMP 36.5; O2SAT 90–96
[2023-05-24] MEDS: ALBUTEROL SULFATE NEB 2.5 MG/3 ML INH INHALATION ×3 (00:01→08:47)
[2023-05-24] MEDS: IPRATROPIUM BR 0.02% INH SOLN 0.5 MG/2.5 ML VIAL INHALATION ×3 (00:01→08:47)
[2023-05-24] MEDS: ENOXAPARIN 40 MG/0.4 ML SYRINGE SUB-Q (08:39)
[2023-05-24] MEDS: PANTOPRAZOLE 40 MG TABLET PO (08:40)
[2023-05-24] MEDS: guaiFENesin 12 HR 600 MG TABCR PO (08:40)
[2023-05-24] MEDS: POTASSIUM CHLORIDE 10 MEQ ER TABLET PO (08:40)
[2023-05-24] MEDS: BENZONATATE 100 MG CAPSULE PO ×2 (08:40→11:56)
[2023-05-24] MEDS: LORATADINE/PSEUDOEPHEDRINE (*CRX) 10/240 MG TABLET ER 24 HR 1 TAB PO (08:40)
[2023-05-24] MEDS: predniSONE 20 MG TABLET 40 MG PO (08:40)
[2023-05-24 09:06] LABS: Hematocrit 32.4 % (37.0-47.0); Hemoglobin 10.9 g/dL (12.0-15.0); Mean Corpuscular HGB Conc 33.6 g/dl (32-36); Mean Corpuscular Hemoglobin 31.1 pg (26-34); Mean Corpuscular Volume 92.6 fl (80-100); Mean Platelet Volume 9.9 fl (7.4-10.4); Platelet Count Result 414 k/mm3 (150-375); Red Cell Distribution Width 14.6 % (11.5-14.5)
[2023-05-24 09:18] LABS: Alanine Aminotransferase 90 U/L (6-35); Albumin Level 2.9 g/dL (3.5-5.1); Alkaline Phosphatase 83 U/L (38-126); Anion Gap 7 mmol/L (8-16); Aspartate Amino Transferase 54 U/L (14-36); Bilirubin,Total 0.4 mg/dL (0.2-1.3); Blood Urea Nitrogen 10 mg/dL (7-17); Calcium 8.6 mg/dL (8.4-10.2); Carbon Dioxide 23 mmol/L (22-30); Chloride 105 mmol/L (98-107); Estimated CRCL calculation 56 ml/min; Estimated Glomerular Filt Rate > 60; Glucose 69 mg/dL (65-110); Potassium 3.4 mmol/L (3.4-5.0); Sodium 135 mmol/L (137-145)
[2023-05-24] MEDS: AZITHROMYCIN 500 MG/NS 250 ML 500 MG/250 ML BAG 250 MG IVPB (10:03)
--- NOTE | 2023-05-24 11:43 | PM.DS ---
DS: Admitting Diagnosis Discharge Date 03/24/2024 Admitting Diagnosis Acute respiratory failure/pneumonia DS: Discharge Diagnosis Discharge Diagnosis (1) Influenza A: Code(s): J10.1 - Influenza due to other identified influenza virus with other respiratory manifestations Status: Acute (2) Pneumonia: Qualifiers: Laterality: bilateral Lung location: unspecified part of lung Pneumonia type: due to unspecified organism Qualified Code(s): J18.9 - Pneumonia, unspecified organism Code(s): J18.9 - Pneumonia, unspecified organism Status: Acute (3) Acute hypoxic respiratory failure: Code(s): J96.01 - Acute respiratory failure with hypoxia Status: Acute (4) Acute hypokalemia: Code(s): E87.6 - Hypokalemia Status: Acute (5) Transaminitis: Code(s): R74.01 - Elevation of levels of liver transaminase levels Status: Acute DS: Summary Hospital Course Hospital Course: Patient is [age]-year-old female came to the hospital complaining of shortness of breath, dry cough, sore throat and congestion. No nausea no vomiting ED workup showed elevated D-dimer lactic acidosis and mild elevation of LFTs x-ray showed bilateral lung infiltrate patient was started on IV antibiotics Rocephin Zithromax along with the nebulizer treatment and Solu-Medrol blood cultures came back negative potassium was corrected during hospital stay but patient cough is improved labs within normal limits saturation up to 96% patient is cleared for discharge will send home on doxycycline for 5 more days and albuterol inhaler used to use as p.r.n. patient will follow-up with the primary care physician in 1 week. Status at Discharge Functional status at discharge: independent ambulation Time Spent with Patient Time attestation: Total time spent providing and/or coordinating discharge services: Exam Narrative: GENERAL: Well appearing, no acute distress. HEAD: Normocephalic, atraumatic. NECK: Supple. No adenopathy, no masses. RESPIRATORY: respirations nonlabored. , no rales, wheezing. CARDIOVASCULAR: Regular rate and rhythm without murmurs, . Peripheral pulses 2+ and equal bilaterally. ABDOMINAL: Soft, nontender, nondistended, no hepatosplenomegaly. Normoactive BS. MUSCULOSKELETAL: no Epigastric and no hypochondrial tenderness SKIN: Warm, dry, NEURO: A&O X3. Moves all extremities DS: Data Data Completed and Pending Labs on day of discharge: Labs from last 24 hours 05/24/23 08:26 WBC 7.0 RBC 3.50 L Hgb 10.9 L Hct 32.4 L MCV 92.6 MCH 31.1 MCHC 33.6 RDW 14.6 H Plt Count 414 H MPV 9.9 Sodium 135 L Potassium 3.4 Chloride 105 Carbon Dioxide 23 Anion Gap 7 L BUN 10 Creatinine 0.60 L Estim Creat Clear Calc 56 Estimated GFR > 60 Glucose 69 Calcium 8.6 Total Bilirubin 0.4 AST 54 H ALT 90 H Alkaline Phosphatase 83 Total Protein 6.0 L Albumin 2.9 L Preliminary micro results at discharge 05/19/23 10:57 Blood Culture - Preliminary Blood 05/19/23 10:57 Blood Culture - Preliminary Blood Discharge Plan Discharge Attending physician on discharge: Corby Chakraborty Consulting providers: Susan Ponce Discharging Clinician: Corby Chakraborty Patient Disposition: Home, Self-Care Activity: as tolerated Diet: regular Patient Instructions: Antibiotic Form, How to Stop Smoking (DC), Cigarette Smoking and Your Health (GEN) Stand Alone Forms: General Discharge Information Follow-up/Referrals: Susan Ponce MD [Physician] - Discharge Medications: New doxycycline hyclate 100 mg capsule 100 mg PO BID 5 Days Qty: 10 0RF albuterol sulfate 90 mcg/actuation HFA aerosol inhaler 2 puff inhalation QID PRN (Reason: shortness of breath or wheezing) Qty: 8.5 0RF No Action No Home Medications Date of admission: 05/20/23 12:55 Primary Care Provider: PHYSICIAN,DUCK FARMER Admitting Provider: Jose
== END 2023-05-24 12:30 | disposition home or self-care (01) | DRG 195 ==
LOC: ANHED 12:57 → ANH2MED 13:52
PROVIDERS: Internal Medicine; Student in an Organized Health Care Education/Training Program; Admitting Provider Internal Medicine; Emergency Provider Physician Assistant; Visit Provider Internal Medicine
DX: J18.9 Pneumonia, unspecified organism (principal); J10.1 Influenza due to other identified influenza virus with other respiratory manifestations; E87.6 Hypokalemia; F17.210 Nicotine dependence, cigarettes, uncomplicated; R74.01 Elevation of levels of liver transaminase levels; Z28.21 Immunization not carried out because of patient refusal; Z20.822 Contact with and (suspected) exposure to COVID-19
CPT/HCPCS: 36415; 71046; 71275; 76705; 80053; 81001; 83605; 83690; 83735; 83880; 84484; 85025; 85027; 85380; 85610; 85730; 87040; 87637; 93005; 94640; 96361; 96365; 96367; 99285; A9270; G0378; J0456; J0696; J1650; J7040; J7120; J7512; Q9967

== ENCOUNTER 2023-07-01 09:11 | Emergency (ER) | payer MEDICARE, SELFPAY ==
--- NOTE | ~2023-07-01 | CT_ITS ---
EXAMINATION: CTA BRAIN/CAROTID DATE: 07/01/2023 12:55 INDICATION: Dizziness TECHNIQUE: Computed tomographic angiography (CTA) of the head and neck was performed with 100 mL Omni paque-350 intravenous contrast. Multiplanar reconstructions and maximum intensity projection 3D-recon structions of the carotid arteries and of the intracranial arteries were created by the technologist on a separate workstation. Precontrast CT of the head was also obtained. Automated exposure control and iterative reconstruction technique were employed.The dose-length product was 1573.40 mGy-cm. COMPARISON: None. FINDINGS: Carotid arteries: Normal caliber aortic arch great vessels arising from the arch with no significant stenosis or dissec tion. There is a small amount of atherosclerotic plaque with 0% stenosis of the right carotid bulb re lative to normal distal artery lumen diameter (NASCET criteria). There is a minimal amount of atheros clerotic plaque with 0% stenosis of the left carotid bulb relative to normal distal artery lumen diam eter. The right vertebral artery is dominant with 60% stenosis at its origin. There is no hemodynamic ally significant stenosis along the left vertebral artery. Moderate emphysema. Decrease in size of a now 1.4 x 1.4 cm partially visualized nodular opacity at the posterior segment of the right upper lob e consistent with improving pneumonia and/or residual atelectasis/scarring. Cervical soft tissues are unremarkable. Head: No acute intracranial hemorrhage, acute infarction or abnormal extra axial fluid collection. There is mild scattered white matter hypoattenuation consistent with chronic small vessel ischemic disease. V entricles are normal and symmetric. No mass/mass effect. No abnormally enhancing brain lesions. Right otomastoiditis effusion. The orbits, paranasal sinuses and mastoid air cells are normal. Intracranial arteries There is a small amount of nonhemodynamically significant atherosclerotic plaque at the bilateral car otid siphons. There is no hemodynamically significant stenosis in the vertebral, basilar and internal carotid arteries. Vertebral arteries are codominant. There are no aneurysms identified. The left A1 and bilateral P1 segments are patent. The right anterior cerebral arteries supplied via the left A1 s egment and a patent anterior communicating artery. Cerebral arterial arborization appears symmetric. IMPRESSION: 1. 0% stenosis of the right and left carotid bulbs relative to normal distal artery lumen diameter (N ASCET criteria). 2. Normal anatomic variation of the [place] with the right anterior cerebral artery supplied via the left A1 segment and a patent anterior communicating artery. Otherwise unremarkable cerebral CT angiogram with no hemodynamically significant stenosis or aneurysm. 3. Mild scattered white matter hypoattenuation consistent with chronic small vessel ischemic disease. No acute intracranial process or abnormally enhancing brain lesions. 4. Moderate emphysema with improvement in prior right upper lobe pneumonia. Reviewed, dictated and finalized at location A. SORS GRINDER IMPRESSION: 1. 0% stenosis of the right and left carotid bulbs relative to normal distal ar nell lumen diameter (NASCET criteria). 2. Normal anatomic variation of the [place] with the right anterior ce rebral artery supplied via the left A1 segment and a patent anterior communicat ing artery. Otherwise unremarkable cerebral CT angiogram with no hemodynamicall y significant stenosis or aneurysm. 3. Mild scattered white matter hypoattenuation consistent with chronic small ve ssel ischemic disease. No acute intracranial process or abnormally enhancing br ain lesions. 4. Moderate emphysema with improvement in prior right upper lobe pneumonia.
[2023-07-01 09:21] VITALS: BP 137/79; PULSE 76; RESP 18; TEMP 35.9; O2SAT 100
[2023-07-01 11:31] VITALS: BP 139/99; PULSE 76; RESP 20; O2SAT 100
--- NOTE | 2023-07-01 11:41 | ECG_ITS ---
Measurements Intervals [place] Rate: 70 P: 130 NC: 168 QRS: 47 QRSD: 88 T: 79 QT: 401 QTc: 434 Interpretive Statements SINUS RHYTHM POSSIBLE RIGHT VENTRICULAR CONDUCTION DELAY [RSR (QR) IN V1/V2] MODERATE T-WAVE ABNORMALITY, CONSIDER ANTERIOR ISCHEMIA [-0.1+ mV T-WAVE IN V3/V4] BORDERLINE ECG COMPARED TO ECG 05/19/2023 10:22:08 NO SIGNIFICANT CHANGES Electronically Signed On 07-01-2023 18:30:36 DIRECTOR OF SPORTS PERFORMANCE by Yayo Stout M.D.
[2023-07-01 11:51] LABS: Basophils Absolute Auto 0.1 K/mm3 (0.0-0.1); Basophils Percent Auto 0.8 % (0.2-1.2); Eosinophils Percent Auto 0.3 % (0-4.4); Hematocrit 42.2 % (37.0-47.0); Immature Granulocyte Absolute 0.02 K/mm3 (0.00-0.031); Immature Granulocyte Percent A 0.3 % (0-0.5); Lymphocytes Absolute Auto 1.69 K/mm3 (0.9-3.2); Lymphocytes Percent Auto 26.3 % (18.3-44.2); Mean Corpuscular HGB Conc 33.2 g/dl (32-36); Mean Corpuscular Hemoglobin 30.7 pg (26-34); Mean Corpuscular Volume 92.5 fl (80-100); Mean Platelet Volume 9.5 fl (7.4-10.4); Monocytes Absolute Auto 0.4 K/mm3 (0.1-0.6); Monocytes Percent Auto 6.5 % (2.6-8.5); Neutrophils Absolute Auto 4.2 K/mm3 (1.3-6.7); Neutrophils Percent Auto 65.8 % (45.5-73.1); Platelet Count Result 293 k/mm3 (150-375); Red Blood Count 4.56 M/mm3 (4.2-5.4); Red Cell Distribution Width 15.9 % (11.5-14.5); White Blood Count 6.4 K/mm3 (4.5-10.0)
--- NOTE | 2023-07-01 11:58 | ED.DIZZY ---
HPI - Dizziness General Chief Complaint: Dizziness Stated Complaint: dizzy,clogged ear Time Seen by Provider: 07/01/23 11:56 History of Present Illness HPI Narrative: Patient is a 67-year-old female here with dizziness and plugged right ear. She states that she was recently hospitalized last month for influenza a, pneumonia. Since that time she has had some plugged sensation in her right ear. She describes it as feeling like water is in her ear canal. She denies any pain. She did go to an urgent care about a week ago where they told her she may have a inner ear infection, started her on antibiotic drops as well as Flonase. She denies any improvement of her symptoms on this medication course. Around 4 am she notes she got up to the bathroom feeling normal. She then states that she got up around 7:00 a.m. this morning to use the restroom and noted that her head was spinning. She describes it as feeling as though she is rocking with waves on a boat. She notes some mild associated nausea, no vomiting. She notes that the dizziness seems to be worse with movements and pretty much resolved while she is at rest. Is not currently present when she is lying in bed. She has been eating and drinking okay since the hospitalization last month. No prior history of hypertension, hyperlipidemia, stroke, CAD that she is aware of. Related Data Allergies Allergy/AdvReac Type Severity Reaction Status Date / Time amoxicillin AdvReac Diarrhea Verified 07/01/23 11:36 Review of Systems Review of Systems: All systems reviewed & are unremarkable except as noted in HPI and below PMFSH Past Medical History Medical History Tobacco use Surgical History Surgical History No history of previous surgery Social History Social History Smoking status: Current every day smoker Tobacco type: cigarettes Alcohol intake: former Drinks per week: 7 Substance use: never Do You Feel Safe in your Home?: Yes Lack of Transportation: No Lack of Food: Never True Current Housing: I Have Housing Concerned About Future Housing: No Difficulty Paying Gas/Electric Bills: No Difficulty Paying for Meds: No Currently Unemployed: No Education: High School Diploma/GED Difficulty w/ Childcare or Family Care: No Spiritual care concerns: No Exam Narrative: GENERAL: Well-appearing, well-nourished, and in no acute distress. HEAD: Normocephalic, atraumatic. EYES: PERRLA and EOMI. Faint horizontal nystagmus which is fatigable. ENT: Nares clear. Mucous membranes moist. Dull TM present on the right side, no obstructing wax. No pain with manipulation of the pinna. No tenderness over the mastoid process. Normal TM on left. NECK: Supple. CHEST: Clear to auscultation. No respiratory distress. HEART: Regular rate and rhythm. Normal peripheral pulses. ABDOMEN: Soft, nontender, nondistended. EXTREMITIES: Normal range of motion. No edema. SKIN: Warm, dry, no rash. NEURO: No focal deficits. No facial droop, normal [id number]. Normal sensation in face, bilateral upper and lower extremities. No upper or lower extremity drift. Alert and oriented x3. PSYCH: Normal mood and affect. Course Course Emergency Course: Chart review performed. Patient here with dizziness starting this morning. Triage vitals normal. It appears she was hospitalized here last month for influenza, pneumonia, respiratory failure, hypokalemia, transaminitis. Patient seen and evaluated, appears to be no acute distress. Neurological exam reveals faint nystagmus, otherwise normal. Will do CT, CTA brain, meclizine, zofran, IVF, reevaluate. Given ear symptoms and findings, much more suspicious for peripheral vertigo instead of central. Lab work reviewed. CBC grossly normal, renal function stable, electrolytes grossly normal. CT CTA grossly normal with 0% stenosis of the
[2023-07-01 12:07] LABS: Alanine Aminotransferase 16 U/L (6-35); Albumin Level 4.3 g/dL (3.5-5.1); Alkaline Phosphatase 74 U/L (38-126); Anion Gap 3 mmol/L (8-16); Aspartate Amino Transferase 27 U/L (14-36); Bilirubin,Total 0.6 mg/dL (0.2-1.3); Blood Urea Nitrogen 19 mg/dL (7-17); Calcium 9.7 mg/dL (8.4-10.2); Carbon Dioxide 27 mmol/L (22-30); Chloride 106 mmol/L (98-107); Estimated CRCL calculation 48 ml/min; Estimated Glomerular Filt Rate > 60; Glucose 158 mg/dL (65-110); Potassium 3.8 mmol/L (3.4-5.0); Sodium 136 mmol/L (137-145)
[2023-07-01 12:15] VITALS: BP 129/89; PULSE 78; RESP 15; O2SAT 100
[2023-07-01] MEDS: MECLIZINE HCL 25 MG TABLET PO (12:30)
[2023-07-01] MEDS: LACTATED RINGERS 1,000 ML 999 ML IV CONT (12:31)
[2023-07-01 12:33] VITALS: BP 131/79; PULSE 79; RESP 19; O2SAT 100
[2023-07-01 14:52] VITALS: BP 140/84; PULSE 80; RESP 16; O2SAT 98
== END 2023-07-01 14:53 | disposition home or self-care (01) ==
PROVIDERS: Nurse Practitioner Family; Emergency Provider Student in an Organized Health Care Education/Training Program
DX: R42 Dizziness and giddiness (principal); H93.8X1 Other specified disorders of right ear; H91.91 Unspecified hearing loss, right ear; F17.210 Nicotine dependence, cigarettes, uncomplicated; Z87.01 Personal history of pneumonia (recurrent); J43.9 Emphysema, unspecified; R94.31 Abnormal electrocardiogram [ECG] [EKG]
CPT/HCPCS: 36415; 70496; 70498; 80053; 85025; 93005; 96360; 99284; A9270; J7120; Q9967

== ENCOUNTER 2023-07-16 10:30 | Outpatient (CLI) | payer MEDICARE, SELFPAY ==
--- NOTE | ~2023-07-16 | CT_ITS ---
EXAMINATION: CT lung screening DATE: 07/16/2023 11:04 INDICATION: NICOTINE DEPENDENCE TECHNIQUE: Computed tomography (CT) of the chest was performed without intravenous contrast. Addition al 3D reconstructions utilizing coronal maximum intensity projection (MIP) were performed. Automated exposure control and iterative reconstruction technique were employed. The dose-length product was 59 .72 mGy-cm. COMPARISON: 05/19/2023 FINDINGS: Mild to moderate upper lung predominant emphysema. The prior patchy bilateral pneumonia has resolved. There are a few residual <4 mm nodules in the right lower lobe. There is thin linear discoid atelect asis/scarring at the bilateral lung bases along with a linear bands of discoid atelectasis in the lat eral anterior right upper lobe along the minor fissure and in the lateral right middle lobe along the major fissure. Heart size is normal. No pericardial or pleural effusion. Atherosclerotic coronary ar nell calcific lesion. Thoracic aorta is normal in caliber. No pathologically enlarged thoracic lympha denopathy. Mild to moderate thoracic spondylosis. Visualized upper abdomen is unremarkable. IMPRESSION: 1. . Lung-RADS category 2: Benign appearance or behavior. Continue annual screening with noncontrast low-dose chest CT in 12 months. Reviewed, dictated and finalized at location A. SFORMER ASSEMBLER IMPRESSION: 1. . Lung-RADS category 2: Benign appearance or behavior. Continue annual scree destiny with noncontrast low-dose chest CT in 12 months.
--- NOTE | ~2023-07-16 | XR_ITS ---
EXAMINATION: XR chest 2V Exam Date/Time: 07/16/2023 10:45 STORYBOARD ARTIST HISTORY: OSTEOPROSIS SCREENING Comparison: 05/19/2023. RESULT: Lines, tubes, and devices: None. Lungs and pleura: Senescent/emphysematous change. Discoid atelectasis/scar in the peripheral right l sarkis. Bilateral costophrenic angle blunting. Cardiomediastinal silhouette: Stable. Other: No acute osseous or upper abdominal finding. IMPRESSION: No acute cardiopulmonary process. Emphysema. Small bilateral effusions versus chronic pleural bluntin g. Reviewed, dictated and finalized at location K. YBOARD ARTIST IMPRESSION: No acute cardiopulmonary process. Emphysema. Small bilateral effusions versus c hronic pleural blunting.
--- NOTE | ~2023-07-16 | XR_ITS ---
EXAM: XR shoulder RT min 2V DATE: 07/16/2023 11:11 HISTORY: OSTEOPROSIS SCREENING . COMPARISON: X-ray and CT chest same date. FINDINGS: Decreased mineralization. No fracture or dislocation. No lytic or blastic lesion. Mild acr omioclavicular and glenohumeral joint degenerative change. No erosion or periosteal change. Soft tiss ues within normal limits. Peripheral, pleural-based opacity in the right upper lung, please refer to the report on the chest CT performed same date IMPRESSION: Osteopenia. Polyarticular osteoarthritis of the right shoulder. Reviewed, dictated and finalized at location K. YTICAL MANAGER
== END 2023-07-16 10:31 | disposition home or self-care (01) ==
LOC: ANHIMG 10:35
PROVIDERS: Visit Provider Emergency Medicine
DX: Z12.2 Encounter for screening for malignant neoplasm of respiratory organs (principal); Z87.891 Personal history of nicotine dependence; M19.011 Primary osteoarthritis, right shoulder; M85.811 Other specified disorders of bone density and structure, right shoulder; J43.9 Emphysema, unspecified
CPT/HCPCS: 71046; 71271; 73030

== ENCOUNTER 2023-12-10 07:52 | Outpatient (CLI) | payer MEDICARE, SELFPAY ==
--- NOTE | ~2023-12-10 | MM_ITS ---
EXAMINATION: MM screening karina BI w floyd HISTORY: Screening TECHNIQUE: Craniocaudal and mediolateral oblique 3-D tomosynthesis images were obtained and synthetic 2-D images were generated. CAD analysis was submitted and interpreted. COMPARISON: No prior mammogram is available for comparison at this institution. BREAST PARENCHYMAL COMPOSITION: Dense: The breasts are heterogeneously dense, which may obscure small masses FINDINGS: There is no evidence of suspicious mass, calcification, or architectural distortion to sugg est malignancy in either breast. There has been no suspicious interval change. IMPRESSION: 1. No mammographic evidence of malignancy. 2. Recommend routine screening mammography in one year. BI-RADS Category 1: Negative Reviewed, dictated and finalized at location B.
--- NOTE | ~2023-12-10 | DEXA_ITS ---
Bone Density Report Name: BHAVANA MADRIGAL Age: 68 Sex: Female Ethnicity: White Date of : 1955 Indication: postmenopausal; screening for osteoporosis; hysterectomy; Referring Provider: KATRINA LANIER Study: Bone densitometry was performed. Exam Date: December 10, 2023 Accession number: [id number] Bone Density: Region BMD T-score Z-score Classification AP Spine(L1-L4) 1.016 -0.3 1.8 Normal Femoral Neck (Left) 0.601 -2.2 -0.5 Osteopenia Total Hip (Left) 0.720 -1.8 -0.4 Osteopenia Femoral Neck (Right) 0.591 -2.3 -0.6 Osteopenia Total Hip (Right) 0.712 -1.9 -0.4 Osteopenia Total Hip Mean 0.716 -1.9 -0.4 Osteopenia World Health Organization criteria for BMD impression classify patients as: Normal (T-score at or above -1.0), Osteopenia (T-score between -1.0 and -2.5), or Osteoporosis (T-score at or below -2.5). 10-year Fracture Risk(1): Major Osteoporotic Fracture 12% Hip Fracture 4.0% Reported Risk Factors: [place] (), Neck BMD=0.591, BMI=19.1, smoking (1) FRAX(R) Version 3.08. Fracture probability calculated for an untreated patient. Fracture probability may be lower if the patient has received treatment. Clinical Information Provided by Patient: Smokes Has used the following medications: Vitamin D Has the following medical conditions: Hysterectomy Patient maximum height was 60 Drinks caffeinated beverages Onset of menses at age 13 Number of children 2 Impression: The patient has low bone mass, based on the Right Femoral Neck T-score. The patient has an estimated ten-year risk of hip fracture of 4% and an estimated ten-year risk of major fracture of 12%, based on the WHO FRAX algorithm. The patient has risk factors, including: smoking. Discussion: BONE DENSITY IS LOW AT ONE OR MORE SKELETAL SITES. THE PATIENT'S BMD AND CLINICAL RISK FACTORS CONTRIBUTE TO THIS PATIENT'S INCREASED RISK OF FRACTURE. This patient's lowest T-score is low at one or more skeletal sites. It meets the World Health Organization's (WHO) criteria for ?low bone mass? (T-score between -1.0 and -2.5). The patient's 10-year risk of hip fracture as calculated by FRAX exceeds the threshold where pharmacological therapy is recommended by the National Osteoporosis Foundation (NOF). However, all treatment decisions require clinical judgment and consideration of individual patient factors, including patient preferences, comorbidities, previous drug use, risk factors not captured in the FRAX model (e.g., frailty, falls, vitamin D deficiency, increased bone turnover, interval significant decline in bone density) and possible under or overestimation of fracture risk by FRAX. The patient should follow a healthful lifestyle (good nutrition with adequate calcium and vitamin D, and appropriate weight-bearing exercise).
== END 2023-12-10 07:53 | disposition home or self-care (01) ==
LOC: ANHIMG 08:00
PROVIDERS: Visit Provider Emergency Medicine
DX: Z12.31 Encounter for screening mammogram for malignant neoplasm of breast (principal); M81.0 Age-related osteoporosis without current pathological fracture; M85.852 Other specified disorders of bone density and structure, left thigh; M85.851 Other specified disorders of bone density and structure, right thigh
CPT/HCPCS: 77063; 77067; 77080

== ENCOUNTER 2024-11-03 08:12 | Outpatient (CLI) | payer MEDICARE, SELFPAY ==
--- NOTE | ~2024-11-03 | CT_ITS ---
CT Scan of the Chest without Contrast: Clinical Indication: Lung cancer screening, nicotine dependence Technique: Contiguous sections were acquired throughout the chest without intravenous contrast. Dose reduction technique was used on this scan by utilizing automated exposure control and iterative recon struction technique. The dose-length product (DLP) was 33.57 mGy-cm. COMPARISON: 07/16/2023 Findings: There is no evidence of any significant mediastinal, hilar or axillary lymphadenopathy. Extensive cor onary artery calcifications are present. There is no evidence of pleural or pericardial effusion. Stable right apical scarring. Moderate emphysema present. Interval improvement in scarring or atelect asis at the peripheral right upper lobe. Images through the upper abdomen reveal no abnormalities. Impression: Lung RADS 2: Benign appearance. 12 month follow-up screening CT advised. Reviewed, dictated and finalized at [facility]. Impression: Lung RADS 2: Benign appearance. 12 month follow-up screening CT advised.
== END 2024-11-03 08:13 | disposition home or self-care (01) ==
LOC: MICIMG 08:14
PROVIDERS: PCP Emergency Medicine; Visit Provider Emergency Medicine
DX: Z12.2 Encounter for screening for malignant neoplasm of respiratory organs (principal); Z87.891 Personal history of nicotine dependence
CPT/HCPCS: 71271